=== PATIENT | male | born 1955 | race Caucasian/White ===

== ENCOUNTER → 2020-07-15 | Outpatient (CLI) | payer MEDICARE, OTHER ==
[2006-01-21 09:00] VITALS: TEMP 96.9
== END ==
LOC: COL.RAD 14:00
DX: M16.11 Unilateral primary osteoarthritis, right hip (principal)
CPT/HCPCS: J3301; Q9967

== ENCOUNTER → 2020-12-29 | Outpatient (CLI) | payer MEDICARE, OTHER ==
[2006-01-21 09:00] VITALS: TEMP 96.9
[~2020-12-29] MED LIST: GLUCOPHAGE500 MG/TAB
== END ==
LOC: COL.VAS 10:40
DX: M79.89 Other specified soft tissue disorders (principal); M79.662 Pain in left lower leg

== ENCOUNTER 2021-05-10 12:11 | Emergency (ER) | payer OTHER, MEDICARE ==
[~2021-05-10] VITALS: Ht 177.8 cm; Wt 90.0 kg
[2021-05-10 12:12] VITALS: TEMP 98.5
[2021-05-10 13:09] LABS: COLLECTION METHOD CLEAN CATCH
[2021-05-10 13:13] LABS: BASO % 0.4 % (0.0-2.0); EOS # 0.1 K/mm3 (0.0-0.7); EOS % 1.3 % (0-4.0); GRAN # 6.2 K/mm3 (1.4-6.5); GRAN % 74.6 % (42.2-75.2); HEMATOCRIT 43.5 % (42.0-52.0); HEMOGLOBIN 15.7 g/dl (13.5-18.0); LYMPH # 1.1 K/mm3 (1.2-3.4); LYMPH % 13.6 % (20.0-51.0); MEAN CELL VOLUME 90 fl (80.0-100.0); MEAN CORPUSCULAR HEMOGLOBIN 32 pg (27.0-31.0); MEAN CORPUSCULAR HGB CONC 36 g/dl (33.0-37.0); MEAN PLATELET VOLUME 8.9 fl (7.4-10.4); MONO # 0.8 K/mm3 (0.1-0.6); MONO % 9.7 % (1.7-9.3); PLATELET COUNT 201 K/mm3 (130-400); RED BLOOD COUNT 4.85 M/mm3 (4.20-5.60)
[2021-05-10 13:15] LABS: PH 7 (5-8); SQUAMOUS EPITHELIAL None Seen /hpf; URINE APPEARANCE Clear; URINE BACTERIA None Seen /hpf; URINE BILIRUBIN Negative (NEGATIVE); URINE BLOOD Negative (NEGATIVE); URINE COLOR Straw; URINE GLUCOSE Negative (NEGATIVE); URINE KETONE Negative (NEGATIVE); URINE LEUKOCYTE ESTERASE Negative (NEGATIVE); URINE NITRATE Negative (NEGATIVE); URINE PROTEIN(semi-quant) Negative (NEGATIVE); URINE RBC 0-2 /hpf; URINE UROBILINOGEN Negative (NEGATIVE)
[2021-05-10] MEDS ORDERED: GLUCOPHAGE500 MG/TAB (13:17)
[2021-05-10 13:32] LABS: ALBUMIN 4.2 gm/dL (3.4-4.8); BILIRUBIN,TOTAL 0.5 mg/dL (0.2-1.2); CALCIUM 10.4 mg/dL (8.4-10.2); CREATININE, serum 0.78 mg/dL (0.72-1.25); POTASSIUM 3.9 mmol/L (3.5-4.5); TOTAL PROTEIN 7.2 gm/dL (6.2-8.1)
[2021-05-10 14:46] VITALS: BP 145/98; PULSE 75
== END 2021-05-10 14:47 | disposition home or self-care (01) ==
LOC: COL.ER 12:11
PROVIDERS: Nurse Practitioner Primary Care
DX: S20.222A Contusion of left back wall of thorax, initial encounter (principal); F17.200 Nicotine dependence, unspecified, uncomplicated; V49.9XXA Car occupant (driver) (passenger) injured in unspecified traffic accident, initial encounter
CPT/HCPCS: Q9967

== ENCOUNTER → 2022-10-25 | Outpatient (CLI) | payer MEDICARE, OTHER ==
[2006-01-21 09:00] VITALS: TEMP 96.9
== END ==
LOC: COL.RAD 08:04
DX: M16.11 Unilateral primary osteoarthritis, right hip (principal)
CPT/HCPCS: J3301; Q9967